=== PATIENT | male | born 1955 | race Caucasian/White ===

== ENCOUNTER 2022-10-15 11:53 | Emergency (ER) | payer MEDICARE, BC ==
[~2022-10-15] VITALS: Ht 182.9 cm; Wt 149.0 kg
[2022-10-15] VITALS (7 sets, daily range): BP systolic 110–149; BP diastolic 52–83
[2022-10-15] MEDS ORDERED: CEPHALEXIN500 MG PO (12:49)
[2022-10-15] MEDS ORDERED: HYDROCO/APAP1 TA9 PO (14:22)
== END 2022-10-15 14:52 | disposition home or self-care (01) ==
LOC: ED 11:53
PROC: 0HQMXZZ Repair Right Foot Skin, External Approach (ICD-10-PCS; principal; 2022-10-15)
DX: S91.311A Laceration without foreign body, right foot, initial encounter (principal); I10 Essential (primary) hypertension; W29.8XXA Contact with other powered hand tools and household machinery, initial encounter; Y92.009 Unspecified place in unspecified non-institutional (private) residence as the place of occurrence of the external cause